=== PATIENT | male | born 1960 | race Caucasian/White ===

== ENCOUNTER 2025-04-30 07:40 | Outpatient (CLI) | payer BC ==
[2025-05-01 13:55] LABS: Estimated GFR - POC 52.0
[2025-05-01 13:55] LABS: Estimated GFR - POC 68.0
== END 2025-04-30 07:41 | disposition home or self-care (01) ==
LOC: MRI 07:40
PROVIDERS: ATTEND Physician Assistant Medical
DX: Z15.01 Genetic susceptibility to malignant neoplasm of breast (principal); Z91.89 Other specified personal risk factors, not elsewhere classified; N28.1 Cyst of kidney, acquired; K76.89 Other specified diseases of liver; K86.2 Cyst of pancreas
CPT/HCPCS: 36415; 74183; 76376; 82565

== ENCOUNTER 2025-05-30 11:54 | Outpatient (CLI) | payer BC | END 2025-05-30 11:55 | disposition home or self-care (01) | LOC: SCSMRI 11:54 | PROVIDERS: ATTEND Family Medicine | DX: M47.26 Other spondylosis with radiculopathy, lumbar region (principal); M48.061 Spinal stenosis, lumbar region without neurogenic claudication; M48.07 Spinal stenosis, lumbosacral region | CPT/HCPCS: 72158 ==